=== PATIENT | male | born 1965 | race Caucasian/White ===

== ENCOUNTER → 2023-11-07 15:13 | Outpatient (REF) | payer OTHER, SELFPAY | LOC: DHCBC MAIN 15:13 | PROVIDERS: ATTENDING PHYSICIAN Internal Medicine Cardiovascular Disease; FAMILY PHYSICIAN Internal Medicine | DX: E78.5 Hyperlipidemia, unspecified (principal); R06.02 Shortness of breath; R07.89 Other chest pain | CPT/HCPCS: 93306 ==

== ENCOUNTER → 2023-11-10 10:17 | Outpatient (REF) | payer OTHER, SELFPAY | LOC: RCS 10:17 | PROVIDERS: ATTENDING PHYSICIAN Internal Medicine Cardiovascular Disease; FAMILY PHYSICIAN Internal Medicine | DX: E78.5 Hyperlipidemia, unspecified (principal); R06.02 Shortness of breath; R07.89 Other chest pain | CPT/HCPCS: 93017; 71046 ==

== ENCOUNTER → 2024-08-06 08:24 | Outpatient (REF) | payer OTHER, SELFPAY | LOC: RAD 08:24 | PROVIDERS: ATTENDING PHYSICIAN Otolaryngology; FAMILY PHYSICIAN Nurse Practitioner Adult Health | DX: J32.0 Chronic maxillary sinusitis (principal) | CPT/HCPCS: 70220 ==